=== PATIENT | male | born 1990 | race Caucasian/White ===

== ENCOUNTER 2023-05-11 07:05 | Emergency (ER) | payer SELFPAY ==
[2023-05-11 07:10] VITALS: BP 119/96; PULSE 72; RESP 18; O2SAT 100; BMI 25.8
[2023-05-11] MEDS: ketorolac 30 mg/mL INJ IVP (07:25)
[2023-05-11] MEDS: ondansetron 2 mg/ML SDV 2 mL 4 MG IVP (07:25)
[2023-05-11 07:43] VITALS: BP 119/77; PULSE 78; RESP 18; O2SAT 100
[2023-05-11 07:48] LABS: Basophils # 0.1 10^3/uL (0.0-0.1); Basophils % 0.5 %; Eosinophils # 0.2 10^3/uL (0.0-0.8); Eosinophils % 1.4 %; Hematocrit 44.5 % (37-53); Lymphocytes # 2.6 10^3/uL (0.8-4.8); Lymphocytes % 22.7 %; Mean Corpuscular HGB Conc 34.2 g/dL (30-55); Mean Corpuscular Hemoglobin 29.6 pg (27-33); Mean Corpuscular Volume 86.7 fl (82-101); Mean Platelet Volume 9.1 fL (7.4-10.4); Monocytes # 0.5 10^3/uL (0.2-0.9); Monocytes % 4.5 %; Neutrophils # 7.99 10^3/uL (1.8-7.7); Neutrophils % 70.1 %; Nucleated Red Blood Cells % 0 %; Platelet Count 313 10^3/cmm (157-399); Red Blood Count 5.13 10^6/uL (3.85-5.65); Red Cell Distribution Width 12.1 % (12.1-15.1); White Blood Count 11.39 10^3/uL (3.29-11.43)
[2023-05-11 08:06] LABS: Alanine Aminotransferase 36 U/L (0-41); Albumin Level 4.7 g/dL (3.5-5.2); Alcohol Level < 10 mg/dL (0-10); Alkaline Phosphatase 94 U/L (40-130); Anion Gap 19.3 (5-19); Aspartate Amino Transferase 29 U/L (0-40); Blood Urea Nitrogen 13 mg/dL (6-20); Calcium 9.6 mg/dL (8.5-10.5); Carbon Dioxide 24 mmol/L (22-29); Chloride 100 mmol/L (98-107); Globulin 2.7 g/dL (1.3-4.6); Glomerular Filtration Rate 59.5 mL/min (90-130); Glucose 166 mg/dL (65-115); Lipase 60 U/L (13-60); Magnesium 1.9 mg/dL (1.7-2.3); Osmolality Calculated 294 mOsm/kg (285-295); Potassium 3.3 mmol/L (3.5-5.1); Sodium 140 mmol/L (136-145); Total Bilirubin 0.3 mg/dL (0.15-1.2); Total Protein 7.4 g/dL (6.6-8.7)
[2023-05-11 08:07] LABS: Amphetamines Screen Urine Negative (Negative); Barbiturates Screen Urine Negative (Negative); Benzodiazepines Screen Urine Negative (Negative); Cocaine Screen Urine Negative (Negative); Opiate Screen Urine Negative (Negative); PCP Screen Urine Negative (Negative); THC Screen Urine Positive (Negative)
[2023-05-11 08:08] LABS: Blood Urine 3+ (Negative); Glucose Urine UA Norm (Normal); Ketones Urine Negative (Negative); Nitrate Urine Negative (Negative); Protein Urine 1+ (Negative); Urine Appearance Hazy (CLEAR); Urine Color Dark Yellow (Yellow); pH Urine 5 (5-7)
[2023-05-11 08:09] LABS: Add Urine Culture? Yes; Add Urine Microscopic? YES; Bacteria Urine 1+ /hpf; Bilirubin Urine Neg (Negative); Leukocyte Esterase Urine Trace (Negative); RBC Urine >100 /hpf (0-2); Urobilinogen Urine Norm (Negative)
--- NOTE | 2023-05-11 08:11 | CTR_ITS ---
PROCEDURE INFORMATION: Exam: CT Abdomen And Pelvis Without Contrast Exam date and time: 05/11/2023 8:16 AM Age: 32 years old Clinical indication: Abdominal pain; Flank; Left; Additional info: Left flank pain, hematuria TECHNIQUE: Imaging protocol: Computed tomography of the abdomen and pelvis without contrast. Total images: 1151 Radiation optimization: All CT scans at this facility use at least one of these dose optimization techniques: automated exposure control; mA and/or kV adjustment per patient size (includes targeted exams where dose is matched to clinical indication); or iterative reconstruction. REPORTING DATA: Count of CT and Cardiac NM exams in prior 12 months: This patient has received 0 known CTs and 0 known cardiac nuclear medicine studies in the 12 months prior to the current study. COMPARISON: No relevant prior studies available. RADIATION DOSE METRICS: Total DLP (mGy-cm): 405.92 FINDINGS: Liver: Normal. No mass. Gallbladder and bile ducts: Normal. No calcified stones. No ductal dilation. Pancreas: Normal. No ductal dilation. Spleen: Normal. No splenomegaly. Adrenal glands: Normal. No mass. Kidneys and ureters: Nonobstructive bilateral kidney stones measure as large as 3 mm. 7 mm left-sided ureteropelvic junction stone. Mild hydronephrosis. Stomach and bowel: Unremarkable. No obstruction. No mucosal thickening. Appendix: No evidence of appendicitis. Intraperitoneal space: Unremarkable. No free air. No significant fluid collection. Vasculature: Unremarkable. No abdominal aortic aneurysm. Lymph nodes: Unremarkable. No enlarged lymph nodes. Urinary bladder: Unremarkable as visualized. Reproductive: Unremarkable as visualized. Bones/joints: Unremarkable. No acute fracture. Soft tissues: Unremarkable. CT/CT kidney stone [id number] IMPRESSION: 7 mm left-sided ureteropelvic junction stone. Mild hydronephrosis.
--- NOTE | 2023-05-11 08:14 | W.ED.ABDPA2 ---
HPI - Abdominal Pain General: Chief Complaint: Abdominal Pain Stated Complaint: Left side pain, dizziness, sob Time Seen by Provider: 05/11/23 07:12 History of Present Illness: Patient presents to the ER with left-sided upper quadrant/flank pain abdominal pain that started this morning. About 5 AM. Patient went to bed fine last night without any pain. Patient does admit to drinking alcohol quite frequently. Patient is never had any pain like this before. Patient's bowel and bladder are normal with no complaints. Patient has not had any fever or chills but does have nausea and vomiting. Review of Systems General: Reports: 10 or more systems reviewed and unremarkable except in HPI and below Physical Exam Const: COMMON NORMALS: no acute distress, average body habitus, patient oriented x3, no limitations, healthy appearing, alert and well nourished HENMT: COMMON NORMALS: normocephalic, atraumatic, hearing grossly normal bilaterally, external ears normal, Normal external nose present, moist oral mucous membranes and oropharynx normal HEAD & SCALP: normocephalic and atraumatic NOSE: Normal external nose present EXTERNAL EAR: Yes external ears normal Eye: COMMON NORMALS: Equal, round and reactive pupils present, EOMs intact bilaterally, conjunctivae normal and no scleral icterus CONJUNCTIVA: Yes conjunctivae normal PUPIL: Yes Equal, round and reactive pupils present Neck/C-Spine: COMMON NORMALS: full ROM, no lymphadenopathy, supple, no meningeal signs, no JVD and Thyroid normal THYROID: Thyroid normal Chest: COMMONS NORMALS: normal inspection of the chest and normal palpation of entire chest wall Resp: COMMON NORMALS: normal respiratory effort, No retractions, No use of accessory muscles and clear to auscultation bilaterally AUSCULTATION: clear to auscultation bilaterally Cardio: COMMON NORMALS: no JVD, regular rate, regular rhythm, S1 normal heart sound present, S2 normal heart sound present, No gallops present (Cardio), No clicks present (Cardio), No murmurs present (Cardio) and No rub (Cardio) RATE: regular rate RHYTHM: regular rhythm HEART SOUNDS: S1 normal heart sound present and S2 normal heart sound present GI: COMMON NORMALS: Normal to inspection, nondistended, normoactive bowel sounds present, Soft to palpation, No hepatosplenomegaly present and no masses; negative for non-tender (. Tender to palpate left upper quadrant) PALPATION: Yes Soft to palpation and Yes No hepatosplenomegaly present Neuro: COMMON NORMALS: patient oriented x3 SENSORIUM/ORIENTATION: Yes alert MENINGEAL SIGNS: Yes no meningeal signs Course Vital Signs: Vital signs: Vital Signs Pulse Rate 78 05/11/23 07:43 Respiratory Rate 18 05/11/23 07:43 Blood Pressure 119/77 05/11/23 07:43 Pulse Oximetry 100 05/11/23 07:43 Oxygen Delivery Me thod Room Air 05/11/23 07:43 MDM - Abdominal Pain Medical Decision Making Patient presents to the ER and after physical exam had lab work and abdomen pelvis CT scan done lab work was essentially benign except for mildly elevated creatinine of 1.4 and low potassium at 3.3 and urine that showed blood. Abdomen pelvis CT showed a 7 mm left-sided ureteropelvic junction stone with mild hydro-. All of this was explained to the patient and patient will be discharged on pain medicine and Flomax and should follow-up with his family doctor within the next 7 days. Differential Diagnosis Likely abdominal pain and calculus of kidney; Unlikely acute appendicitis, constipation, diverticulitis, endometriosis, gastroenteritis, pancreatitis or small bowel obstruction Lab Data I reviewed the patient's lab results. 05/11/23 07:15 05/11/23 07:15 Labs/Radiology: Radiology Impressions Abdomen/Pelvis CT 05/11/23 08:11 IMPRESSION: 7 mm left-sided ureteropelvic junction stone. Mild hydronephrosis. Laboratory Results WBC 11.39 10^3/uL (3.29-11.43) 05/11/23 07:15 RBC 5.13 10^6/uL (3.85-5.65) 05/11/23 07:15 Hgb 15.20 g/dL (11.27-16.99) 05/11/23 07:15 Hct 44.5 % (37-53) 05/11/23 07:15 MCV 86.7 fl (82-101) 05/11/23 07:15 MCH 29.6 pg (27-33) 05/11/23 07:15 MCHC 34.2 g/dL (30-55) 05/11/23 07:15 RDW 12.1 % (12.1-15.1) 05/11/23 07:15 Plt Count 313 10^3/cmm (157-399) 05/11/23 07:15 MPV 9.1 fL (7.4-10.4) 05/11/23 07:15 Neut % (Auto) 70.1 % 05/11/23 07:15 Lymph % (Auto) 22.7 % 05/11/23 07:15 [place] % (Auto) 4.5 % 05/11/23 07:15 Eos % (Auto) 1.4 % 05/11/23 07:15 Baso % (Auto) 0.5 % 05/11/23 07:15 Neut # (Auto) 7.99 10^3/uL (1.8-7.7) H 05/11/23 07:15 Lymph # (Auto) 2.6 10^3/uL (0.8-4.8) 05/11/23 07:15 [place] # (Auto) 0.5 10^3/uL (0.2-0.9) 05/11/23 07:15 Eos # (Auto) 0.2 10^3/uL (0.0-0.8) 05/11/23 07:15 Baso # (Auto) 0.1 10^3/uL (0.0-0.1) 05/11/23 07:15 Nucleated RBC % (auto) 0 % 05/11/23 07:15 Nucleated RBCs # 0.0 /100WBC 05/11/23 07:15 Sodium 140 mmol/L (136-145) 05/11/23 07:15 Potassium 3.3 mmol/L (3.5-5.1) L 05/11/23 07:15 Chloride 100 mmol/L (98-107) 05/11/23 07:15 Carbon Dioxide 24 mmol/L (22-29) 05/11/23 07:15 Anion Gap 19.3 (5-19) H 05/11/23 07:15 BUN 13 mg/dL (6-20) 05/11/23 07:15 Creatinine 1.4 mg/dL (0.7-1.2) H 05/11/23 07:15 GFR Calculation 59.5 mL/min (90-130) L 05/11/23 07:15 Glucose 166 mg/dL (65-115) H 05/11/23 07:15 Calculated Osmolality 294 mOsm/kg (285-295) 05/11/23 07:15 Calcium 9.6 mg/dL (8.5-10.5) 05/11/23 07:15 Magnesium 1.9 mg/dL (1.7-2.3) 05/11/23 07:15 Total Bilirubin 0.3 mg/dL (0.15-1.2) 05/11/23 07:15 AST 29 U/L (0-40) 05/11/23 07:15 ALT 36 U/L (0-41) 05/11/23 07:15 Alkaline Phosphatase 94 U/L (40-130) 05/11/23 07:15 Total Protein 7.4 g/dL (6.6-8.7) 05/11/23 07:15 Albumin 4.7 g/dL (3.5-5.2) 05/11/23 07:15 Globulin 2.7 g/dL (1.3-4.6) 05/11/23 07:15 Lipase 60 U/L (13-60) 05/11/23 07:15 Urine Color Dark yellow (Yellow) 05/11/23 07:45 Urine Appearance Hazy (CLEAR) A 05/11/23 07:45 Urine pH 5 (5-7) 05/11/23 07:45 Ur Specific [place] 1.020 (1.005-1.030) 05/11/23 07:45 Urine Protein 1+ (Negative) H 05/11/23 07:45 Urine Glucose (UA) Norm (Normal) 05/11/23 07:45 Urine Ketones Negative (Negative) 05/11/23 07:45 Urine Blood 3+ (Negative) H 05/11/23 07:45 Urine Nitrate Negative (Negative) 05/11/23 07:45 Urine Bilirubin Neg (Negative) 05/11/23 07:45 Urine Urobilinogen Norm mg/dL (Negative) 05/11/23 07:45 Ur Leukocyte Esterase Trace (Negative) H 05/11/23 07:45 Urine RBC >100 /hpf (0-2) H 05/11/23 07:45 Urine WBC 10-15 /hpf (0-5) H 05/11/23 07:45 Ur Squamous Epith Cells None /hpf (0-5) 05/11/23 07:45 Amorphous Sediment Not Reportable 05/11/23 07:45 Urine Bacteria 1+ /hpf (NONE) H 05/11/23 07:45 Urine Opiates Screen Negative ng/mL (Negative) 05/11/23 07:45 Ur Barbiturates Screen Negative ng/mL (Negative) 05/11/23 07:45 Ur Phencyclidine Scrn Negative ng/mL (Negative) 05/11/23 07:45 Ur Amphetamines Screen Negative ng/mL (Negative) 05/11/23 07:45 U Benzodiazepines Scrn Negative ng/mL (Negative) 05/11/23 07:45 Urine Cocaine Screen Negative ng/mL (Negative) 05/11/23 07:45 U Marijuana (THC) Screen Positive ng/mL (Negative) H 05/11/23 07:45 Ethyl Alcohol < 10 mg/dL (0-10) 05/11/23 07:15 All radiology interpretation(s) finalized by discharge Discharge Plan Discharge Patient Disposition: Home Clinical Impression: Kidney stone on left side Condition: Stable Prescriptions: New ketorolac 10 mg tablet 10 mg PO TID PRN (Reason: pain) Qty: 14 0RF Flomax 0.4 mg capsule 0.4 mg PO Q24H Qty: 10 0RF Discharge Orders: Discharge ED (Routine); Ordered 05/11/23 Ordered By: Soren Nichols Patient Instructions: Kidney Stones, Renal Colic (ED), Pain Management Activity Restrictions/Additional Instructions: please take all medicine as prescribed. Please drink plenty of fluids to flush the kidney stone out. Please follow-up with your family practice doc within next 7 days for further evaluation and treatment such as possible referral to urology. If you have any nausea vomiti fever chills uncontrolled pain please return to the ER for further evaluation and treatment. Coding Level of Care Code ED Special Needs Tutor for Krista Eduardo
[2023-05-11] MEDS: sodium chloride 0.9% 1,000 ML 999 ML IV (08:18)
[2023-05-11 09:10] VITALS: BP 137/94; PULSE 78; RESP 18; O2SAT 100
== END 2023-05-11 09:11 | disposition home or self-care (01) ==
PROVIDERS: Emergency Provider Emergency Medicine
DX: N13.2 Hydronephrosis with renal and ureteral calculous obstruction (principal)
CPT/HCPCS: 74176; 80053; 80306; 80307; 81001; 83690; 83735; 85025; 87086; 96361; 96374; 96375; 99285; J1885; J2405; J7030

== ENCOUNTER 2023-09-04 13:31 | Emergency (ER) | payer OTHER, SELFPAY ==
[2023-09-04 13:37] VITALS: BP 106/66; PULSE 67; RESP 16; TEMP 36.7; O2SAT 97; BMI 25.0
--- NOTE | 2023-09-04 13:46 | XRR_ITS ---
PROCEDURE INFORMATION: Exam: XR Left Hand Exam date and time: 09/04/2023 2:08 PM Age: 32 years old Clinical indication: Injury or trauma; Other: Laceration; Hand and finger; Left; Ring finger TECHNIQUE: Imaging protocol: Radiologic exam of the left hand. Views: 3 or more views. COMPARISON: No relevant prior studies available. FINDINGS: Bones/joints: No acute fracture or dislocation identified. A ring is present on the 4th finger and obscures portions of the skeletal structures primarily involving the 4th proximal phalanx. No radiodense foreign body identified. Soft tissues: No acute soft tissue abnormality identified. XR/XR hand LT min 3V* [id number] IMPRESSION: 1. No acute abnormality identified.
--- NOTE | 2023-09-04 14:15 | W.ED.WOUNDLC ---
HPI - Wound/Laceration General: Chief Complaint: Wound/Laceration Stated Complaint: left hand ring finger lac Time Seen by Provider: 09/04/23 13:32 History of Present Illness: Patient comes in today for laceration to the PIP joint area of the palmar side of the left ring finger. Patient has good range of motion of the finger. Normal strength. Tendon function is intact. Patient reports his tetanus is up-to-date. Incident occurred 1 to 2 hours prior to arrival. Review of Systems General: Reports: 10 or more systems reviewed and unremarkable except in HPI and below Musc: Reports: extremity pain Physical Exam Const: COMMON NORMALS: alert HENMT: COMMON NORMALS: normocephalic HEAD & SCALP: normocephalic Neck/C-Spine: COMMON NORMALS: full ROM Resp: COMMON NORMALS: normal respiratory effort Cardio: COMMON NORMALS: regular rate RATE: regular rate Back/Pelvis: COMMON NORMALS: thoracic and lumbar spine normal to inspection Extremity: LEFT UPPER EXTREMITY: Yes hand & digits (1 cm laceration PIP joint area on the palmar side) Left hand and digits: Yes inspection, Yes palpation, Yes ROM and Yes neurovascular exam Neuro: SENSORIUM/ORIENTATION: Yes alert Procedures Laceration Laceration 1: Site: hand Side (If applicable): left Size (cm): 1 Description: irregular Depth: simple, single layer Local Anesthetic: lidocaine 1% Amount of anesthesia used (mL): 1 Pre-repair: wound explored and irrigated extensively Skin layer closed with: nylon Size (cm): 4-0 Number of sutures: 3 Course Vital Signs: Vital signs: Vital Signs Temperature 98.1 F 09/04/23 13:37 Pulse Rate 67 09/04/23 13:37 Respiratory Rate 16 09/04/23 13:37 Blood Pressure 106/66 09/04/23 13:37 Pulse Oximetry 97 09/04/23 13:37 MDM - Wound/Laceration Medical Decision Making Patient comes in for injury to the left hand ring finger. On exam there is a 1 cm laceration, tendon function is intact, distal sensation and cap refills intact. X-ray shows no fracture. Wound was repaired with sutures. Patient tolerated well. Differential diagnoses included but not limited to fracture, foreign body, tendon injury, neurovascular injury. No signs of serious injury was noted. Patient was recommended follow-up in 1 week for recheck and suture removal in 7 to 10 days. All radiology interpretation(s) finalized by discharge Discharge Plan Discharge Patient Disposition: Home Clinical Impression: Finger laceration Qualifiers: Encounter type: initial encounter Finger: ring finger Damage to nail status: without damage Foreign body presence: without foreign body Laterality: left Qualified Code(s): S61.215A - Laceration without foreign body of left ring finger without damage to nail, initial encounter Condition: Stable Prescriptions: New amoxicillin-pot clavulanate 875-125 mg tablet 1 tab PO BID Qty: 14 0RF No Action Flomax 0.4 mg capsule 0.4 mg PO Q24H Qty: 10 0RF Discharge Orders: Discharge ED (Routine); Ordered 09/04/23 Ordered By: Ovidio Noe Discharge Diet: Usual diet Discharge Activity: Increase activity as tolerated Patient Instructions: Finger Laceration (ED) Activity Restrictions/Additional Instructions: Sutures out in 7 to 10 days. Keep wound clean and dry. Try to avoid use of involved finger as much as possible. Wear a dressing for protection of the wound. Follow-up with primary care in 1 week. Coding Level of Care Code ED Veneer Jointer Returner for Krista Eduardo
[2023-09-04] MEDS: amoxicillin-clav 875-125 mg Tablet 1 TAB PO (14:48)
== END 2023-09-04 14:53 | disposition home or self-care (01) ==
PROVIDERS: Emergency Provider Nurse Practitioner Family
DX: S61.215A Laceration without foreign body of left ring finger without damage to nail, initial encounter (principal); W27.0XXA Contact with workbench tool, initial encounter
CPT/HCPCS: 12001; 73130; 99283

== ENCOUNTER 2024-05-21 06:39 | Emergency (ER) | payer SELFPAY ==
[2024-05-21 06:47] VITALS: BP 128/74; PULSE 55; RESP 16; TEMP 36.8; O2SAT 97; BMI 25.8
--- NOTE | 2024-05-21 06:52 | CTR_ITS ---
PROCEDURE INFORMATION: Exam: CT Abdomen And Pelvis Without Contrast Exam date and time: 05/21/2024 7:16 AM Age: 33 years old Clinical indication: Abdominal pain; Flank; Left; Additional info: L flank pain TECHNIQUE: Imaging protocol: Computed tomography of the abdomen and pelvis without contrast. Radiation optimization: All CT scans at this facility use at least one of these dose optimization techniques: automated exposure control; mA and/or kV adjustment per patient size (includes targeted exams where dose is matched to clinical indication); or iterative reconstruction. COMPARISON: CT kidney stone [id number] 05/11/2023 8:16 AM RADIATION DOSE METRICS: Total DLP (mGy-cm): 371.35 FINDINGS: Lungs: Lung bases are clear as visualized. Liver: Normal. No mass. Gallbladder and biliary ducts: Normal. No calcified stones. No ductal dilation. Pancreas: Normal. No ductal dilation. Spleen: Normal. No splenomegaly. Adrenal glands: Normal. No mass. Kidneys and ureters: There are bilateral nonobstructing renal calculi. No hydronephrosis is noted on the right. There is hydronephrosis and hydroureter on the left extending to the ureteropelvic junction where there is a 9 mm stone present. Stomach and bowel: Unremarkable. No obstruction. No mucosal thickening. Appendix: No evidence of appendicitis. Intraperitoneal space: Unremarkable. No free air. No significant fluid collection. Vasculature: Unremarkable. No abdominal aortic aneurysm. Lymph nodes: Unremarkable. No enlarged lymph nodes. Urinary bladder: Unremarkable as visualized. Reproductive: Unremarkable as visualized. Bones/joints: Unremarkable. No acute fracture. Soft tissues: There is a small fat filled periumbilical hernia. CT/CT kidney stone [id number] IMPRESSION: 1. Bilateral nephrolithiasis. 2. Hydronephrosis and hydroureter on the left secondary to a 9 mm stone at the ureteropelvic junction.
--- NOTE | 2024-05-21 06:53 | ED_ITS ---
HPI - Abdominal Pain 2 General: Chief Complaint: Abdominal Pain Stated Complaint: Left side abdominal pain Time Seen by Provider: 05/21/24 06:40 Source: patient Mode of arrival: ambulatory Limitations: no limitations History of Present Illness: 33-year-old male states he been having l eft flank pain for last day. States pains been sharp in nature denies any radiation he denies any worse improved factors rates the pain a 6 out of 10 currently denies any dysuria. Associated Symptoms: Denies chills, diarrhea, dysuria, fever(s), nausea and vomiting Related Data Previous Rx's Medication Instructions Recorded hydrocodone 5 mg-acetaminophen 325 1 tab PO Q6H PRN pain #14 tabs 05/21/24 mg tablet ondansetron 4 mg disintegrating 4 mg PO Q6H PRN nausea and 05/21/24 tablet vomiting #14 tabs Allergies Allergy/AdvReac Type Severity Reaction Status Date / Time No Known Allergies Allergy Unverified 09/04/23 13:05 Review of Systems 2 Const: Denies: fever(s), chills, body aches or change in appetite ENMT: Denies: throat pain or dental pain Card: Denies: chest pain Resp: Denies: dyspnea GI: Reports: abdominal pain; Denies: nausea, vomiting or diarrhea : Reports: flank pain; Denies: dysuria Musc: Denies: neck pain or back pain Skin/Breast: Denies: rash Neuro: Denies: headache(s) Physical Exam 2 Const: COMMON NORMALS: no acute distress, patient oriented x3 and healthy appearing HENMT: COMMON NORMALS: normocephalic and atraumatic HEAD & SCALP: n ormocephalic and atraumatic Neck/C-Spine: COMMON NORMALS: full ROM and supple Chest: COMMONS NORMALS: normal inspection of the chest Resp: COMMON NORMALS: normal respiratory effort Cardio: COMMON NORMALS: regular rate, regular rhythm and No murmurs present (Cardio) RATE: regular rate RHYTHM: regular rhythm GI: COMMON NORMALS: Normal to inspection, nondistended, normoactive bowel sounds present, Soft to palpation, non-tender and no masses PALPATION: Yes Soft to palpation Extremity: COMMON NORMALS: normal to inspection and full ROM Neuro: COMMON NORMALS: patient oriented x3, moves all extremities and no focal motor deficits Psych: COMMON NORMALS: mental status grossly normal, Normal thought process present and cooperative THOUGHT PROCESS: Normal thought process present Skin: COMMON NORMALS: no rashes or lesions noted and no wounds GENERAL SKIN EXAM: no rashes or lesions noted Course 2 Vital Signs: Vital signs: Vital Signs Temperature 98.2 F 05/21/24 06:47 Pulse Rate 55 L 05/21/24 06:47 Respiratory Rate 16 05/21/24 06:47 Blood Pressure 128/74 05/21/24 06:47 Pulse Oximetry 97 05/21/24 06:47 Oxygen Delivery Me thod Room Air 05/21/24 06:47 MDM - Abdominal Pain Medical Decision Making Patient presents with left flank pain does have a kidney stone no signs of infection his pain is controlled we will discharge him with a strainer he is to follow-up with urology return if worsening he understands agrees to plan. Medical Records I reviewed the patient's medical records. Lab Data I reviewed the patient's lab results. 05/21/24 07:04 05/21/24 07:04 Labs/Radiology: Radiology Impressions Abdomen/Pelvis CT 05/21/24 06:52 IMPRESSION: 1. Bilateral nephrolithiasis. 2. Hydronephrosis and hydroureter on the left secondary to a 9 mm stone at the ureteropelvic junction. Laboratory Results WBC 6.66 10^3/uL (3.29-11.43) 05/21/24 07:04 RBC 5.02 10^6/uL (3.85-5.65) 05/21/24 07:04 Hgb 14.70 g/dL (11.27-16.99) 05/21/24 07:04 Hct 43.8 % (37-53) 05/21/24 07:04 MCV 87.3 fl (82-101) 05/21/24 07:04 MCH 29.3 pg (27-33) 05/21/24 07:04 MCHC 33.6 g/dL (30-55) 05/21/24 07:04 RDW 11.8 % (12.1-15.1) L 05/21/24 07:04 Plt Count 198 10^3/cmm (157-399) 05/21/24 07:04 MPV 8.7 fL (7.4-10.4) 05/21/24 07:04 Neut % (Auto) 67.9 % 05/21/24 07:04 Lymph % (Auto) 22.7 % 05/21/24 07:04 [place] % (Auto) 6.2 % 05/21/24 07:04 Eos % (Auto) 2.6 % 05/21/24 07:04 Baso % (Auto) 0.3 % 05/21/24 07:04 Neut # (Auto) 4.53 10^3/uL (1.8-7.7) 05/21/24 07:04 Lymph # (Auto) 1.5 10^3/uL (0.8-4.8) 05/21/24 07:04 [place] # (Auto) 0.4 10^3/uL (0.2-0.9) 05/21/24 07:04 Eos # (Auto) 0.2 10^3/uL (0.0-0.8) 05/21/24 07:04 Baso # (Auto) 0.0 10^3/uL (0.0-0.1) 05/21/24 07:04 Nucleated RBC % (auto) 0 % 05/21/24 07:04 Nucleated RBCs # 0.0 /100WBC 05/21/24 07:04 Sodium 142 mmol/L (136-145) 05/21/24 07:04 Potassium 4.4 mmol/L (3.5-5.1) 05/21/24 07:04 Chloride 107 mmol/L (98-107) 05/21/24 07:04 Carbon Dioxide 26 mmol/L (22-29) 05/21/24 07:04 Anion Gap 13.4 (5-19) 05/21/24 07:04 BUN 19 mg/dL (6-20) 05/21/24 07:04 Creatinine 1.0 mg/dL (0.7-1.2) 05/21/24 07:04 GFR Calculation 87.2 mL/min (90-130) L 05/21/24 07:04 Glucose 97 mg/dL (65-115) 05/21/24 07:04 Calculated Osmolality 296 mOsm/kg (285-295) H 05/21/24 07:04 Calcium 8.6 mg/dL (8.5-10.5) 05/21/24 07:04 Total Bilirubin 0.3 mg/dL (0.15-1.2) 05/21/24 07:04 AST 16 U/L (0-40) 05/21/24 07:04 ALT 19 U/L (0-41) 05/21/24 07:04 Alkaline Phosphatase 61 U/L (40-130) 05/21/24 07:04 Total Protein 6.3 g/dL (6.6-8.7) L 05/21/24 07:04 Albumin 4.2 g/dL (3.5-5.2) 05/21/24 07:04 Globulin 2.1 g/dL (1.3-4.6) 05/21/24 07:04 Lipase 43 U/L (13-60) 05/21/24 07:04 Urine Color Yellow (Yellow) 05/21/24 07:05 Urine Appearance Clear (CLEAR) 05/21/24 07:05 Urine pH 5.5 (5-7) 05/21/24 07:05 Ur Specific [place] 1.020 (1.005-1.030) 05/21/24 07:05 Urine Protein Negative (Negative) 05/21/24 07:05 Urine Glucose (UA) Negative (Normal) 05/21/24 07:05 Urine Ketones Negative (Negative) 05/21/24 07:05 Urine Blood 1+ (Negative) A 05/21/24 07:05 Urine Nitrate Negative (Negative) 05/21/24 07:05 Urine Bilirubin Negative (Negative) 05/21/24 07:05 Urine Urobilinogen 0.2 mg/dL (Negative) 05/21/24 07:05 Ur Leukocyte Esterase 1+ (Negative) A 05/21/24 07:05 Urine RBC 3-5 /hpf (0-2) 05/21/24 07:05 Urine WBC 11-20 /hpf (0-5) H 05/21/24 07:05 Ur Squamous Epith Cells 0-5 /hpf (0-5) 05/21/24 07:05 Amorphous Sediment Not Reportable 05/21/24 07:05 Urine Bacteria None seen /hpf (NONE) 05/21/24 07:05 Hyaline Casts 0-4 /lpf H 05/21/24 07:05 All radiology interpretation(s) finalized by discharge Discharge Plan Discharge Patient Disposition: Home Clinical Impression: Kidney stone Condition: Stable Prescriptions: New hydrocodone-acetaminophen 5-325 mg tablet 1 tab PO Q6H PRN (Reason: pain) Qty: 14 0RF ondansetron 4 mg tablet,disintegrating 4 mg PO Q6H PRN (Reason: nausea and vomiting) Qty: 14 0RF Discharge Orders: Discharge ED (Routine); Ordered 05/21/24 Ordered By: Quin Anthony Discharge Diet: Advance as tolerated Discharge Activity: Resume usual activity Patient Instructions: Kidney Stones (ED), Opioid Safety Coding Level of Care Code ED Finished Stock Inspector for Krista Eduardo
[2024-05-21 07:18] LABS: Basophils % 0.3 %; Eosinophils # 0.2 10^3/uL (0.0-0.8); Eosinophils % 2.6 %; Hematocrit 43.8 % (37-53); Lymphocytes # 1.5 10^3/uL (0.8-4.8); Lymphocytes % 22.7 %; Mean Corpuscular HGB Conc 33.6 g/dL (30-55); Mean Corpuscular Hemoglobin 29.3 pg (27-33); Mean Corpuscular Volume 87.3 fl (82-101); Mean Platelet Volume 8.7 fL (7.4-10.4); Monocytes # 0.4 10^3/uL (0.2-0.9); Monocytes % 6.2 %; Neutrophils # 4.53 10^3/uL (1.8-7.7); Neutrophils % 67.9 %; Nucleated Red Blood Cells % 0 %; Platelet Count 198 10^3/cmm (157-399); Red Blood Count 5.02 10^6/uL (3.85-5.65); Red Cell Distribution Width 11.8 % (12.1-15.1); White Blood Count 6.66 10^3/uL (3.29-11.43)
[2024-05-21 07:21] LABS: Bilirubin Urine Negative (Negative); Blood Urine 1+ (Negative); Glucose Urine UA Negative (Normal); Ketones Urine Negative (Negative); Leukocyte Esterase Urine 1+ (Negative); Nitrate Urine Negative (Negative); Protein Urine Negative (Negative); Urine Appearance Clear (CLEAR); Urine Color Yellow (Yellow); Urobilinogen Urine 0.2 mg/dL (Negative); pH Urine 5.5 (5-7)
[2024-05-21 07:31] LABS: Add Urine Microscopic? YES; Bacteria Urine None Seen /hpf; Hyaline Casts Urine 0-4 /lpf; Squamous Epithelial Cell Urine 0-5 /hpf (0-5)
[2024-05-21 07:36] LABS: Alanine Aminotransferase 19 U/L (0-41); Albumin Level 4.2 g/dL (3.5-5.2); Alkaline Phosphatase 61 U/L (40-130); Anion Gap 13.4 (5-19); Aspartate Amino Transferase 16 U/L (0-40); Blood Urea Nitrogen 19 mg/dL (6-20); Calcium 8.6 mg/dL (8.5-10.5); Carbon Dioxide 26 mmol/L (22-29); Chloride 107 mmol/L (98-107); Creatinine Clr Calc Pharmacy 101.8999; Globulin 2.1 g/dL (1.3-4.6); Glomerular Filtration Rate 87.2 mL/min (90-130); Glucose 97 mg/dL (65-115); Lipase 43 U/L (13-60); Osmolality Calculated 296 mOsm/kg (285-295); Potassium 4.4 mmol/L (3.5-5.1); Sodium 142 mmol/L (136-145); Total Bilirubin 0.3 mg/dL (0.15-1.2); Total Protein 6.3 g/dL (6.6-8.7)
[2024-05-21 08:43] VITALS: BP 101/61; PULSE 62; O2SAT 97
--- NOTE | 2024-05-24 08:36 | DCPLANNER ---
Referral for urology sent to [facility] -
== END 2024-05-21 08:45 | disposition home or self-care (01) ==
PROVIDERS: Emergency Provider Emergency Medicine
DX: N20.0 Calculus of kidney (principal)
CPT/HCPCS: 74176; 80053; 81001; 83690; 85025; 99284